=== PATIENT | male | born 1975 | race Caucasian/White ===

== ENCOUNTER 2021-08-15 09:53 | Day surgery (SDC) | payer BC ==
[2021-08-10 16:04] VITALS: BMI 32.3
[~2021-08-15 09:53] MED LIST: LACTATED RINGERS 1,000 ML IV SCH; LIDOCAINE 1% (10MG/ML) FOR IV START INTRADERMA PRN
[2021-08-15] MEDS ORDERED: LIDOCAINE 1% (10MG/ML) FOR IV START SQ ONE (10:33)
[2021-08-15] MEDS ORDERED: LIDOCAINE 1% INJ 10MG/ML (20 ML MDV) ONE (11:08)
[2021-08-15] MEDS ORDERED: PROPOFOL 10 MG/ML 20 ML VIAL IV ONE (11:08)
--- NOTE | 2021-08-15 11:16 | P.GSHP ---
History of Present Illness H&P Date: 08/15/21 Chief Complaint: Rectal bleeding 46-year-old male here today for colonoscopy. Admits to intermittent episodes of rectal bleeding. Symptoms for the last 2-3 years. No bleeding recently. No history of colon cancer in his family. No change in bowel habits. Past Medical History Past Medical History: No Reported History History of Any Multi-Drug Resistant Organisms: None Reported Past Surgical History: No Surgical Hx Reported Additional Past Surgical History / Comment(s): CYST REMOVED FROM BUTTOCKS AREA, Past Anesthesia/Blood Transfusion Reactions: No Reported Reaction Smoking Status: Former smoker - Past Family History Father Family Medical History: Cancer Medications and Allergies Home Medications Medication Instructions Recorded Confirmed Type Multivitamins, Thera [Multivitamin 1 tab PO DAILY 08/10/21 08/15/21 History (formulary)] Allergies Allergy/AdvReac Type Severity Reaction Status Date / Time codeine AdvReac Nausea & Verified 08/15/21 10:17 Vomiting Penicillins AdvReac Nausea & Verified 08/15/21 10:17 Vomiting Surgical - Exam Vital Signs Pulse Resp BP Pulse Ox 95 18 142/87 98 08/15/21 10:21 08/15/21 10:21 08/15/21 10:21 08/15/21 10:21 Physical exam: General: Well-developed, well-nourished HEENT: Normocephalic, sclerae nonicteric Abdomen: Nontender, nondistended Extremities: No edema Neuro: Alert and oriented Assessment and Plan (1) Rectal bleeding Narrative/Plan: Will proceed with colonoscopy at this time Current Visit: Yes Status: Acute Code(s): K62.5 - HEMORRHAGE OF ANUS AND RECTUM SNOMED Code(s): 00226626
--- NOTE | 2021-08-15 11:43 | P.PCN ---
Date of Procedure: 08/15/21 Procedure(s) Performed: PREOPERATIVE DIAGNOSIS: Rectal bleeding POSTOPERATIVE DIAGNOSIS: Multiple colonic polyps PROCEDURE: Colonoscopy with snare polypectomy ANESTHESIA: MAC SURGEON: Pernell Castillo M.D. SPECIMENS: Polyps ENDOSCOPIC PROCEDURE: The patient was placed on the endoscopy table in the left decubitus position. The Olympus colonoscope was inserted into the anus and passed under direct visualization to the base of the cecum. The appendiceal orifice was visualized. From that point the scope was slowly withdrawn inspecting all surfaces carefully. There were no neoplastic inflammatory or polypoid lesions throughout the cecum or ascending colon. At the hepatic flexure a polyp was seen and removed using the snare with cautery technique. Another similar polyp was seen in the mid transverse colon and removed in a similar fashion. The descending colon appeared normal. In the sigmoid there were 3 polyps all removed using the snare with cautery technique. In the rectum the another small polyp was seen and removed in a similar fashion. There was no visible diverticulosis. Digital rectal examination was normal. The patient was taken to the recovery room in stable condition per anesthesia guidelines. RECOMMENDATIONS: Await biopsy results. Anticipate repeat colonoscopy 3-5 years.
[2021-08-15 11:47] VITALS: RESP 16
[2021-08-15 11:58] VITALS: BP 124/84; PULSE 73
== END 2021-08-15 12:24 | disposition home or self-care (01) ==
LOC: ORWHC2ENDO 09:53
PROVIDERS: ATTEND Surgery
DX: D12.3 Benign neoplasm of transverse colon (principal); K63.5 Polyp of colon; K62.1 Rectal polyp; Z98.890 Other specified postprocedural states; K62.5 Hemorrhage of anus and rectum; Z80.9 Family history of malignant neoplasm, unspecified; Z87.891 Personal history of nicotine dependence; Z88.5 Allergy status to narcotic agent; Z88.0 Allergy status to penicillin
CPT/HCPCS: 45385; J2001; J2704; 88305

== ENCOUNTER 2022-03-12 15:19 | Emergency (ER) | payer BC ==
[2022-03-12 16:33] VITALS: BP 145/88; PULSE 77; RESP 18; TEMP 98.6
--- NOTE | 2022-03-12 17:12 | XR ---
EXAMINATION TYPE: XR foot complete LT DATE OF EXAM: 03/12/2022 COMPARISON: NONE HISTORY: Foot pain TECHNIQUE: 3 views FINDINGS: Metatarsals appear intact. The toes are intact. No fracture nor dislocation. There is some soft tissue swelling on the dorsum of the foot. There is some spurring of the anterior malleolus. IMPRESSION: Soft tissue swelling. No fracture seen. 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
--- NOTE | 2022-03-12 18:08 | ED ---
General Adult HPI - General Chief complaint: Extremity Injury, Lower Stated complaint: L foot injury Time Seen by Provider: 03/12/22 17:35 Source: patient, RN notes reviewed, old records reviewed Mode of arrival: wheelchair Limitations: no limitations - History of Present Illness Initial comments: This is a 46-year-old male who presents emergency Department complaining that a tank weighing about 160 pounds fell over and hit him in the left foot. Patient denies any ankle pain patient denies any toe pain. Patient states it swelled up immediately and it hurts too much to ambulate on. Patient denies any other injury at this time. Patient denies any previous injury to that foot. - Related Data Home Medications Medication Instructions Recorded Confirmed Multivitamins, Thera [Multivitamin 1 tab PO DAILY 08/10/21 08/15/21 (formulary)] Previous Rx's Medication Instructions Recorded Ibuprofen [Motrin] 800 mg PO Q6H #20 tab 03/12/22 Allergies Allergy/AdvReac Type Severity Reaction Status Date / Time codeine AdvReac Nausea & Verified 03/12/22 16:33 Vomiting Penicillins AdvReac Nausea & Verified 03/12/22 16:33 Vomiting Review of Systems ROS Statement: Those systems with pertinent positive or pertinent negative responses have been documented in the HPI. ROS Other: All systems not noted in ROS Statement are negative. Past Medical History Past Medical History: No Reported History History of Any Multi-Drug Resistant Organisms: None Reported Past Surgical History: No Surgical Hx Reported Additional Past Surgical History / Comment(s): CYST REMOVED FROM BUTTOCKS AREA, Past Anesthesia/Blood Transfusion Reactions: No Reported Reaction Past Psychological History: No Psychological Hx Reported Smoking Status: Former smoker Past Alcohol Use History: Occasional Past Drug Use History: None Reported - Past Family History Father Family Medical History: Cancer General Exam - General Exam Comments Initial Comments: GENERAL Patient is well-developed and well-nourished. Patient is in mild distress. EYES Patient's pupils are equal and round. Extraocular motion is intact SKIN Unremarkable NEURO The patient is alert and oriented 3 PYSCH Patient has normal interpersonal interactions. MUSCULOSKELETAL Patient's left foot is tender at the distal first second third and fourth metatarsal. Patient also has bruising and some swelling in that area. Patient has no ankle tenderness patient has no toe tenderness. Limitations: no limitations Course Vital Signs 09/05/22 16:31 Temperature 98.6 F Pulse Rate 77 Respiratory 18 Rate Blood Pressure 145/88 O2 Sat by Pulse 98 Oximetry Medical Decision Making - Medical Decision Making X-ray of the foot shows no acute abnormality. Patient was unable to ambulate on the foot. Patient states he has crutches at home and he will use them to get around Disposition Clinical Impression: Contusion, foot Disposition: HOME SELF-CARE Condition: Good Instructions (If sedation given, give patient instructions): Foot Contusion (ED) Additional Instructions: Patient should weight-bear as tolerated. If the pain is not getting better in 4-5 days patient should follow-up with orthopedics Prescriptions: Ibuprofen [Motrin] 800 mg PO Q6H #20 tab Is patient prescribed a controlled substance at d/c from ED?: No Referrals: David Ocampo MD [Primary Care Provider] - 1-2 days Time of Disposition: 18:07
== END 2022-03-12 18:20 | disposition home or self-care (01) ==
LOC: EC 15:19
DX: S90.32XA Contusion of left foot, initial encounter (principal); Z87.891 Personal history of nicotine dependence; Z88.5 Allergy status to narcotic agent; Z88.0 Allergy status to penicillin; W20.8XXA Other cause of strike by thrown, projected or falling object, initial encounter
CPT/HCPCS: 99283